=== PATIENT | female | born 1985 | race African-American/Black ===

== ENCOUNTER 2017-06-21 13:09 | Emergency (ER) | payer MEDICAID ==
[~2017-06-21] VITALS: Ht 160 cm; Wt 63.0 kg
[2017-06-21 15:57] LABS: BASOPHILS % 0.8 % (0.0-2.0); CHLORIDE 103 mEq/L (98-107); EOSINOPHILS % 1.6 % (0.0-5.0); HEMOGLOBIN. 11.7 g/dL (12.0-16.0); MEAN CORPUSCULAR HEMOGLOBIN 30.9 pg (28.0-32.0); MEAN PLATELET VOLUME 6.9 fl (7.4-10.4); MONOCYTES % 7.9 % (2.0-8.0); NEUTROPHILS % 60.7 % (40.0-76.0); PLATELET 247 x1000/uL (130-400); RED BLOOD CELL COUNT 3.78 mill/uL (4.2-5.4); RED CELL DISTRIBUTION WIDTH 13.2 % (11.6-14.6)
[2017-06-21 16:22] LABS: B-HCG QUANTITATIVE 60495 mIU/mL (<3)
[2017-06-21 16:45] LABS: CLARITY URINE CLEAR (CLEAR); COLOR URINE YELLOW (YELLOW); KETONES URINE NEGATIVE (NEGATIVE); LEUKOCYTE ESTERASE URINE NEGATIVE (NEGATIVE); NITRITE URINE NEGATIVE (NEGATIVE); OCCULT BLOOD URINE NEGATIVE (NEGATIVE); PH URINE 7.5 (4.5-8.0); PROTEIN URINE NEGATIVE (NEGATIVE); UROBILINOGEN URINE 0.2 E.U./dL (0.2-1.0)
[2017-06-21 19:31] VITALS: BP 110/75
== END 2017-06-21 19:37 | disposition home or self-care (01) ==
LOC: ER 13:09
DX: O20.0 Threatened abortion (principal); O44.01 Complete placenta previa NOS or without hemorrhage, first trimester; O26.91 Pregnancy related conditions, unspecified, first trimester; Z3A.13 13 weeks gestation of pregnancy
CPT/HCPCS: 36415; 76801; 80053; 81003; 81025; 84702; 85025; 86850; 86900; 99285